=== PATIENT | female | born 1990 | race African-American/Black ===

== ENCOUNTER 2021-03-21 10:35 | Inpatient (IN) | payer OTHER ==
[~2021-03-21] VITALS: Ht 165.1 cm; Wt 75.7 kg
[~2021-03-21 10:35] MED LIST: BIRTH CONTROL; HYDROCODONE-AP1 EAC6 PO; IBUPROFEN 600600 M1 PO; LORTABELXR PO; NOHOMEMEDICATIONS; ONDANSETRON HCL4 M2 PO; PROMETHAZINE-C120 ML PO; ZPAK PO
[2021-03-21 10:50] VITALS: BP 146/83
[2021-03-21 11:41] LABS: ABSOLUTE NEUTROPHILS 8.9 thou/uL (1.4-8.2); BASOPHILS 0.5 % (0.0-2.0); EOSINOPHILS 0.7 % (0.0-3.0); HEMATOCRIT 45.2 % (37.0-47.0); HEMOGLOBIN 14.8 gm/dL (12.0-15.0); LYMPHOCYTES 13.8 % (24.0-44.0); MCH 27.1 pg (26.0-34.0); MCHC 32.7 g/dL (28.0-37.0); MONOCYTES 9.5 % (1.0-8.0); PLATELET COUNT 220 thou/uL (150-400); POLYS 75.5 % (36.0-66.0); RBC 5.44 mil/uL (4.20-5.00); WBC 11.8 thou/uL (4.0-11.0)
[2021-03-21 11:56] LABS: CALCIUM 9.3 mg/dL (8.5-10.1); CREATININE 1.1 mg/dL (0.6-1.0); POTASSIUM 4.1 mmol/L (3.5-5.1)
--- NOTE | 2021-03-21 13:21 | EKG ---
[address] [address] ELECTROCARDIOGRAM REPORT Name: ANUJ HONG Room #: [facility]ITALObdulio[facility] [id number] Admission: 03/21/21 Attend Phys: Discharge: Date of : 86 Report #: [id number] [facility] ED Test Date: 2021-03-21 Test Time: 10:56:17 Pat Name: ANUJ HONG Department: Room: Gender: F [employer] Inspector: Miguel : 1990 Requested By: Yonny Purcell Order Number: [id number] MD: Ori Smith Measurements Intervals [place] Rate: 101 P: 67 PA: 128 QRS: 49 QRSD: 99 T: 38 QT: 332 QTc: 431 Interpretive Statements Sinus tachycardia No previous ECG available for comparison Electronically Signed On 03-21-2021 13:21:13 STRATEGIC PROCUREMENT MANAGER by Ori Smith [email or web address] <ELECTRONICALLY SIGNED> By: Ori Smith MD, [facility] 03/21/21 1321 1056 1056 Ori Smith MD, FACC /EPI
[2021-03-21 18:32] VITALS: BP 123/69
--- NOTE | 2021-03-21 18:40 | NUR ---
REPORT CALLED TO FLOOR, GIVEN TO SHANIKA VITAL.
[2021-03-21 18:41] VITALS: BP 123/69
[2021-03-21 19:16] VITALS: BP 124/84
--- NOTE | 2021-03-21 19:52 | NUR ---
PT ARRIVED TO UNIT AT 1850 FROM ED. PT A&O x4, INDEPENDENT AT HOME. APPEARS WELL KEPT WITH MINIMAL CONCERNS AT THIS TIME. ADMISSION EDUCATION PROVIDED. ADMIT HISOTRY CHARTED TO THE BEST OF THIS RNs ABILITY. SOME SECTIONS- SI, ABUSE, FINANCIAL CONCERNS- SKIPPED PT HAD UNKNOWN VISITOR AT BEDSIDE. PT PROVIDED WITH LUNCH BOX, WATER, AND OTHER BASIC PERSONAL ITEMS. 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
[2021-03-22 04:15] VITALS: BP 138/82
[2021-03-22 07:37] VITALS: BP 124/73
[2021-03-22] MEDS ORDERED: ELIQUIS5 MG PO (09:56)
[2021-03-22 11:01] VITALS: BP 124/73
--- NOTE | 2021-03-22 12:08 | NUR ---
PT ADMITTED RELATED TO PULMONART EMBOLISM. CM REVIEWED CHART AND SPOKE WITH CARE TEAM. CM MET WITH PT AT BEDSIDE THIS DAY. PT APPEARED TO BE A&O X4. CM ROLE INTRODUCED. PT INDICATED SHE LIVES IN A [place] WITH HER SISTER AND THEIR CHILDREN. PT INDICATED 7 STEPS DOWN TO ENTER. PT INDICATED SHE HAD BEEN INDEPENDENT WITH GAIT ASSORTER. PT INDICATED SHE FEELS WEAK BUT THINKS SHE WILL HAVE SUPPORT NEEDED UPON RETURN HOME. CARE TEAM SENDING PT HOME ON [employer]. pT INDICATED SHE MAY NOT BE ABLE TO PAY TO FILL SCRIPTS UPON DC. CM INFORMED PT AND PROVIDED HER A 30 DAY FREE TRIAL CARD. PT INQUIRED ABOUT PAIN MEDS. CM INDICATED THAT CM CAN'T VOUCHER NARCOTICS UPON DC BUT THAT SCRIPTS FOR MEDS WOULD HAVE BEEN SENT TO HER PHARMACY ON [facility] IN [place]. PT INDICATED SHE DROVE HERSELF HERE AND PLAN TO DRIVE HOME. NURSE REACHING OUT TO HOSPITALIST TO ASK ABOUT PAIN MEDS. CM TO PROVIDE SAFTERY NET CLINIC PACKET AND INFO ON PCP HERE AT [facility] [place] PT DOESN'T HAVE ONE. NO OTHER ANTICPATED DC NEEDS. CASE CLOSED.
--- NOTE | 2021-03-22 12:32 | NUR ---
[address] MORSE [id number] DR[address] MORSE RETURNED PAGE, PT WANTED TO KNOW IF SHE COULD HAVE TRAMADOL UPON DISCHARGE. DR. MORSE SAID NO, THAT HE WOULD PREFER HER TO USE IBUPROFEN INSTEAD. WILL INFORM PATIENT.
--- NOTE | 2021-03-22 14:36 | NUR ---
1415 PT TO DC HOME, IV REMOVED WITHOUT DIFFICULTY, CATHETER INTACT. DC PAPERS GONE OVER, ALL QUESTIONS ANSWERED. PT GIVEN INFORMATION FOR MEDICATIONS. PT DC IN GOOD CONDITION; NORMAL RISE AND FALL OF CHEST, NO RESPIRATORY DISTRESS NOTED AT THIS TIME; DENIES PAIN.
== END 2021-03-22 14:15 | disposition home or self-care (01) | DRG 176 ==
LOC: ER 10:35 → 4W 15:06 → EROBS 15:06 → 4W 18:42
PROVIDERS: Emergency Medicine; ADMIT Hospitalist; ATTEND Hospitalist
DX: I26.99 Other pulmonary embolism without acute cor pulmonale (principal); Z20.822 Contact with and (suspected) exposure to COVID-19; F17.210 Nicotine dependence, cigarettes, uncomplicated
CPT/HCPCS: 10045